=== PATIENT | male | born 1985 ===

== ENCOUNTER 2017-07-27 01:41 | Emergency (ER) | payer SELFPAY ==
[2017-07-27 01:54] VITALS: RESP 18
--- NOTE | 2017-07-27 04:15 | C.PDOC ---
History Of Present Illness 31 year old male presents to the ER via EMS after being found intoxicated sleeping outside of his building. Patient offers no complaints at this time. Time Seen by Provider: 07/27/17 01:50 Chief Complaint (Nursing): Substance Abuse History Per: Patient History/Exam Limitations: no limitations Onset/Duration Of Symptoms: Hrs Current Symptoms Are (Timing): Still Present Suicide/Self Injury Attempted (Context): None Modifying Factor(s): Alcohol Associated Symptoms: denies: Depression, Suicidal Thoughts Involuntary Hold By: None Recent travel outside of the [place]: No Past Medical History Reviewed: Historical Data, Nursing Documentation, Vital Signs Vital Signs: Last Vital Signs Temp 98.7 F 07/27/17 01:46 Pulse 83 07/27/17 06:52 Resp 18 07/27/17 06:52 BP 91/58 L 07/27/17 06:52 Pulse Ox 98 07/27/17 06:52 Family History: States: Unknown Family Hx - Social History Hx Alcohol Use: Yes Hx Substance Use: No - Immunization History Hx Tetanus Toxoid Vaccination: No Hx Influenza Vaccination: No Hx Pneumococcal Vaccination: No Review Of Systems Constitutional: Negative for: Fever, Chills Cardiovascular: Negative for: Chest Pain, Palpitations Respiratory: Negative for: Shortness of Breath Gastrointestinal: Negative for: Nausea, Vomiting, Abdominal Pain Physical Exam - Physical Exam Appears: Non-toxic, No Acute Distress, Other (ETOH on breath, Obese) Skin: Normal Color, Warm, Dry Head: Atraumatic, Normacephalic Eye(s): bilateral: Normal Inspection Oral Mucosa: Moist Neck: Normal, Supple Chest: Symmetrical, No Tenderness Cardiovascular: Rhythm Regular Respiratory: Normal Breath Sounds, No Rales, No Rhonchi, No Wheezing Gastrointestinal/Abdominal: Soft, No Tenderness Neurological/Psych: Oriented x3, Normal Speech, Other (Slurred speech) ED Course And Treatment O2 Sat by Pulse Oximetry: 96 (Room air) Pulse Ox Interpretation: Normal Disposition - Disposition Referrals: Non [facility] Provider, [Primary Care Provider] - Disposition Time: 07:06 Condition: FAIR Forms: [facility] (Indian) - Clinical Impression Clinical Impression: Alcohol intoxication - PA / SHANK FAKER / Resident Statement MD/DO has reviewed & agrees with the documentation as recorded. - Scribe Statement The provider has reviewed the documentation as recorded by the Scribe Eitan Leung All medical record entries made by the Scribe were at my direction and personally dictated by me. I have reviewed the chart and agree that the record accurately reflects my personal performance of the history, physical exam, medical decision making, and the department course for this patient. I have also personally directed, reviewed, and agree with the discharge instructions and disposition. Physician Patient Turnover Patient Signed Over To: Bebe Morales Handoff Comments: Pending sobriety
[2017-07-27 10:41] VITALS: BP 112/71; PULSE 70; TEMP 98; O2SAT 96
== END 2017-07-27 10:40 | disposition home or self-care (01) ==
LOC: SUPCPDRO 01:41 → C.ER 01:41
DX: F10.129 Alcohol abuse with intoxication, unspecified (principal); Y90.9 Presence of alcohol in blood, level not specified